=== PATIENT | female | born 1960 | race Caucasian/White ===

== ENCOUNTER 2020-07-27 08:19 | Outpatient (CLI) | payer MEDICAID ==
[~2020-07-27] VITALS: Ht 157.5 cm; Wt 72.6 kg
[2020-07-27 08:36] LABS: TOTAL HEMOGLOBIN 15.7 G/dl (12.0-16.0)
[2020-07-27] MEDS ORDERED: albuterol 2.5 MG/3 ML nebule NEB ONE (09:00)
== END 2020-07-27 23:59 | disposition home or self-care (01) ==
LOC: RT 08:19
PROVIDERS: ATTEND Internal Medicine Cardiovascular Disease
DX: R94.2 Abnormal results of pulmonary function studies (principal); J84.112 Idiopathic pulmonary fibrosis; J98.4 Other disorders of lung
CPT/HCPCS: 85018; 94060; 94727; 94729; 94760